=== PATIENT | female | born 1985 | race Caucasian/White ===

== ENCOUNTER → 2018-04-06 13:42 | Outpatient (CLI) | payer OTHER, SELFPAY ==
--- NOTE | 2018-04-06 | PATH_ITS ---
Note [facility] Accession Number: [id number] TESTS RESULT FLAG UNITS REF RANGE LAB Clinician Provided Cytology Information No. of containers..01 ThinPrep Vial No. of containers..12 Previously Prepared Cytology Slide RIGHT THYROID NODULE DIAGNOSIS: 02 RIGHT THYROID NODULE NEGATIVE FOR MALIGNANT CELLS. [place] CATEGORY II. SPECIMEN CONSISTS OF BENIGN FOLLICULAR CELLS, HEMOSIDERIN-LADEN MACROPHAGES, COLLOID, AND BLOOD. THIS PATTERN IS CONSISTENT WITH A COLLOID NODULE. Pathologist ICD10: 02 E04.1 02 Debbie Alfonso MD, Pathologist NPI- [id number] Shahbaz Camara, Unemployment Claims Adjudicator ([facility]) 01 30 CC, PINK, CLEAR RECEIVED: 6 ALCOHOL FIXED AND 6 QUICK STAINED SLIDES. /VDU FLAG LEGEND: L-Low Normal,H-High Normal,LL-Alert Low,HH-Alert High <-Panic Low,>-Panic High,A-Abnormal,AA-Critical Abnormal Performed at: 01 =Z [facility] [address], [place] [address] Norman Laird MD, 02 [facility] [address] [place] [phone] Karl Patel MD, Performed at: 01 [facility] [address], [place], [place] [id number] MD Norman Laird MD Phone: [phone]
--- NOTE | 2018-04-06 | DI.US.S_ITS ---
PROCEDURE: US FINE NEEDLE ASPIRATION INDICATIONS: THYROID MASS TECHNIQUE: The indications, alternatives, benefits, risks, and complications of the procedure were explained to the patient. Written informed consent was obtained and placed in the chart. The thyroid region was examined sonographically and a site was chosen for ultrasound guided percutaneous sampling. The skin was prepared and draped in the usual fashion, and anesthetized with 1% lidocaine infiltrated from the skin down to the thyroid gland. Multiple passes were then performed, with contents emptied into an appropriate pathology specimen container. A bandage was applied to the area of access at completion of the study. COMPARISON: None. FINDINGS: Location(s) of lesion(s) sampled: Anterior aspect of the middle third of the right thyroid lobe [place]: 4 25 gauge hypodermic needles, and 222 gauge needles. Number of passes: 6 total Medications: 1% lidocaine for local anaesthesia. Complications: None. IMPRESSION: Successful ultrasound-guided thyroid nodule fine needle aspiration, with cytology results pending. Please see chart below for management recommendations based on cytology results. [facility] ReportingRecommendationsNon-diagnostic* Repeat US-guided FNA, with on-site cytology evaluation if possible. * Repeated non-diagnostic nodules without high suspicion US features: close observation vs surgical consult. * Consider surgery if nodule has high suspicion US features, grows >20% in 2 dimensions on followup, or patient has clinical risk factors for malignancy. Benign* If nodule has high suspicion US features: repeat US and FNA within 12 months. * If nodule has low to intermediate suspicion US features: repeat US at 12-24 months. If nodule grows (20% increase in at least 2 dimensions, with minimal increase of 2 mm or >50% change in volume), or development of new suspicious US features, then repeat FNA or continue followup. * If nodule has very low suspicion US features: followup US at >24 months. Atypia of undetermined significance, follicular lesion of undetermined significanceRepeat FNA, molecular testing, followup US, or surgical consult.Follicular neoplasm, suspicious for follicular neoplasmSurgical consult; also consider molecular testing. Suspicious for malignancySurgical consult.MalignantSurgical consult. Dictated by: Neno Vargas M.D. on 04/06/2018 at 15:10 Approved by: Neno Vargas M.D. on 04/06/2018 at 15:11
== END ==
PROVIDERS: Visit Provider Otolaryngology Facial Plastic Surgery
DX: E04.1 Nontoxic single thyroid nodule (principal)
CPT/HCPCS: 10022; 76942